=== PATIENT | male | born 1995 | race Caucasian/White ===

== ENCOUNTER 2019-05-25 17:21 | Emergency (ER) | payer OTHER ==
[~2019-05-25] VITALS: Ht 177.8 cm; Wt 79.4 kg
[2019-05-25 17:36] VITALS: BP 126/76
[2019-05-25] MEDS ORDERED: CEFD300C PO (18:01)
--- NOTE | 2019-05-25 18:02 | PHYS DOC ---
Past History Past Medical History: No Pertinent History Past Surgical History: No Surgical History Alcohol Use: Rarely Drug Use: None Adult General Chief Complaint Chief Complaint: EARACHE/EAR PAIN HPI HPI 23-year-old male presents with right ear pain and decreased hearing. Patient states that this is been hurting him off and on for a couple of weeks. [place]. He was directed to take antihistamines. He has done this, but the pain has increased and he feels like his hearing has decreased over the last couple of days. He has not been exposed to high pressure acoustic damage such as gun fire or explosions. He has a history of ear infections on this side. He has had a ruptured eardrum in the past about 3 years ago. He does not remember if that was traumatic or infectious. Patient denies fever or chills. He has no other complaints at this time. Review of Systems Review of Systems Constitutional: Denies fever or chills [] Eyes: Denies change in visual acuity, redness, or eye pain [] HENT: Denies nasal congestion or sore throat. Right ear pain, decreased hearin g.[] Respiratory: Denies cough or shortness of breath [] Cardiovascular: No additional information not addressed in HPI [] GI: Denies abdominal pain, nausea, vomiting, bloody stools or diarrhea [] : Denies dysuria or hematuria [] Musculoskeletal: Denies back pain or joint pain [] Integument: Denies rash or skin lesions [] Neurologic: Denies headache, focal weakness or sensory changes [] Endocrine: Denies polyuria or polydipsia [] All other systems were reviewed and found to be within normal limits, except as documented in this note. Allergies Allergies Allergies Coded Allergies Type Severity Reaction Last Updated Verified No Known Drug Allergies 05/25/19 No Physical Exam Physical Exam Constitutional: Well developed, well nourished, no acute distress, non-toxic appearance. [] HENT: Normocephalic, atraumatic, bilateral external ears normal, oropharynx moist, no oral exudates, nose normal. Left tympanic membrane normal. Right tympanic membrane is erythematous, bulging, and with blood. Likely spontaneous rupture.[] Eyes: PERRLA, EOMI, conjunctiva normal, no discharge. [] Neck: Normal range of motion, no tenderness, supple, no stridor. [] Cardiovascular:Heart rate regular rhythm, no murmur [] Lungs & Thorax: Bilateral breath sounds clear to auscultation [] Abdomen: Bowel sounds normal, soft, no tenderness, no masses, no pulsatile masses. [] Skin: Warm, dry, no erythema, no rash. [] Back: No tenderness, no CVA tenderness. [] Extremities: No tenderness, no cyanosis, no clubbing, ROM intact, no edema. [] Neurologic: Alert and oriented X 3, normal motor function, normal sensory function, no focal deficits noted. [] Psychologic: Affect normal, judgement normal, mood normal. [] Current Patient Data Vital Signs Vital Signs Date Time Temp Pulse Resp B/P (MAP) Pulse Ox O2 Delivery O2 Flow Rate FiO2 05/25/19 17:36 98.3 77 16 99 Room Air EKG EKG [] Radiology/Procedures Radiology/Procedures [] Course & Med Decision Making Course & Med Decision Making Pertinent Labs and Imaging studies reviewed. (See chart for details) Patient appears to have acute otitis media of the right ear with spontaneous rupture. I will place him on cefdinir for 10 days. He is stable for discharge at this time. [] Dragon Disclaimer Dragon Disclaimer This electronic medical record was generated, in whole or in part, using a voice recognition dictation system. Departure Departure: Impression: Primary Impression: Right otitis media with spontaneous rupture of eardrum Disposition: 01 HOME, SELF-CARE Condition: STABLE Referrals: JAMES KASPER PA-C (PCP) Patient Instructions: Otitis Media, Adult, [id number] Scripts Cefdinir (CEFDINIR) 300 Mg Capsule 2 CAP PO DAILY for otitis media, #20 CAP Prov: DILLAN ANTONY DO 05/25/19 DILLAN ANTONY DO May 25, 2019 18:02
== END 2019-05-25 18:19 | disposition home or self-care (01) ==
LOC: ER 17:21
DX: H66.91 Otitis media, unspecified, right ear (principal); H72.91 Unspecified perforation of tympanic membrane, right ear
CPT/HCPCS: 99283